=== PATIENT | male | born 1945 | race Hispanic/Latino ===

== ENCOUNTER 2023-07-07 08:56 | Day surgery (SDC) | payer OTHER ==
[2023-07-04 13:08] LABS: BASOPHILS # (AUTO) 0.03 K/uL (0.00-0.20); BASOPHILS % (AUTO) 0.4 % (0.0-5.0); EOSINOPHILS # (AUTO) 0.21 K/uL (0.00-0.70); EOSINOPHILS % (AUTO) 2.7 % (0.0-8.0); HEMATOCRIT 42.6 % (42-54); IMMATURE GRANULOCYTE ABSOLUTE 0.03 K/uL (0-1); LYMPHOCYTES # (AUTO) 1.6 K/uL (1.0-4.8); LYMPHOCYTES % (AUTO) 21.1 % (21.0-51.0); MEAN CORPUSCULAR HGB CONC 32.6 g/dL (32.0-36.0); MEAN CORPUSCULAR VOLUME 88.8 fL (79-99); MONOCYTES # (AUTO) 0.5 K/uL (0.1-1.0); MONOCYTES % (AUTO) 5.8 % (3.0-13.0); NEUTROPHILS # (AUTO) 5.4 K/uL (1.8-7.7); NEUTROPHILS % (AUTO) 69.6 % (40.0-77.0); PLATELET COUNT (AUTO) 217 K/uL (130-400); RED CELL DISTRIBUTION WIDTH 12.5 % (11.0-15.5); WHITE BLOOD COUNT (AUTO) 7.7 K/uL (4.8-10.8)
[2023-07-04 13:17] VITALS: PULSE 81; RESP 18
[2023-07-04 13:17] LABS: CREATININE 1.6 mg/dL (0.5-1.5); POTASSIUM 4.4 mmol/L (3.5-5.1)
[2023-07-04 13:20] LABS: INR < 0.93 (0.85-1.15); PROTHROMBIN TIME 10.2 SEC (9.6-11.6)
[2023-07-04 13:21] LABS: PARTIAL THROMBOPLASTIN TIME 31.3 SEC (26.3-35.5)
[2023-07-04 13:34] LABS: APPEARANCE,URINE CLEAR (CLEAR); BILIRUBIN,URINE NEGATIVE (NEGATIVE); COLOR,URINE COLORLESS (YELLOW); GLUCOSE, URINE (UA) NEGATIVE (NEGATIVE); KETONES,URINE NEGATIVE (NEGATIVE); LEUKOCYTE ESTERASE ,URINE NEGATIVE Leu/uL (NEGATIVE); NITRATE,URINE NEGATIVE (NEGATIVE); OCCULT BLOOD,URINE NEGATIVE (NEGATIVE); PROTEIN,URINE NEGATIVE (NEGATIVE); UROBILINOGEN,URINE 0.2 mg/dL (0.2-1.0)
[2023-07-04 13:35] LABS: ADD UA MICROSCOPIC NO
[2023-07-04 14:07] LABS: B-TYPE NATRIURETIC PEPTIDE 89 pg/mL (0-100)
[~2023-07-07] VITALS: Ht 162.6 cm; Wt 67.6 kg
[2023-07-07 09:05] VITALS: BP 153/92; PULSE 98; RESP 17
[2023-07-07] MEDS ORDERED: 0.9%NACL 1000ML 1,000 ML IV ONE (09:17)
[2023-07-07] MEDS ORDERED: FENTANYL CITRATE PF 50 MCG/1 ML 2ML VIAL ONE (12:28)
[2023-07-07] MEDS ORDERED: LIDOCAINE HCL 400MG/20ML VIAL ONE (12:28)
[2023-07-07] MEDS ORDERED: MIDAZOLAM HCL 1 MG/ML 2ML VIAL ONE ×2 (12:29→13:06)
[2023-07-07] MEDS ORDERED: IOHEXOL-350 75 ML VIAL IV ONE ×2 (12:29→14:05)
[2023-07-07] MEDS ORDERED: NITROGLYCERIN 50MG VIAL ONE (12:29)
[2023-07-07] MEDS ORDERED: HEPARIN 10,000 UNIT/10ML (1,000 UNIT/ML) VIAL ONE (12:29)
[2023-07-07] MEDS ORDERED: VERAPAMIL HCL 2.5 MG/ML VIAL ONE (12:29)
[2023-07-07] MEDS ORDERED: ATROPINE 1MG SYG IVP ONE (12:52)
[2023-07-07] MEDS ORDERED: HYDRALAZINE 20MG/ML VIAL ONE (13:10)
[2023-07-07] MEDS ORDERED: DEXTROSE 50%-WATER 50 ML DISP.SYRIN IV PRN (14:30)
[2023-07-07] MEDS ORDERED: GLUCAGON 1MG KIT 1 MG ML IM PRN (14:30)
== END 2023-07-07 16:53 | disposition home or self-care (01) ==
LOC: DAH 08:56
PROVIDERS: ATTEND Student in an Organized Health Care Education/Training Program
DX: I25.119 Atherosclerotic heart disease of native coronary artery with unspecified angina pectoris (principal); I48.3 Typical atrial flutter; Z79.01 Long term (current) use of anticoagulants; Z83.3 Family history of diabetes mellitus; I49.1 Atrial premature depolarization; I49.3 Ventricular premature depolarization
CPT/HCPCS: 80048; 83880; 85025; 85610; 85730; 81003; 36415 ×2; 71045; 93005 ×2; 93458; 85347; 82948; C1887 ×2; C1769 ×2; C1894 ×4; C1760; A4649; J3010; J3490 ×3; J7030; J0360; J1644 ×2; J2250 ×2; Q9967; A4215; A4222; A4221; A4663; A4216; A4606; Q9965 ×2; A4223 ×3; 99156; 99157; J0461